=== PATIENT | female | born 1975 | race Caucasian/White ===

== ENCOUNTER 2018-04-25 15:40 | Emergency (ER) | payer BC, SELFPAY ==
[2018-04-25 15:53] VITALS: BP 126/88; PULSE 67; RESP 16; TEMP 37; O2SAT 99
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
[2018-04-25] MEDS: Sulfameth/Trimeth DS TAB 1 TAB PO ×2 (17:45→17:55)
--- NOTE | 2018-04-25 18:43 | NUR.NOTE ---
Nursing Note: a few packets of bacitracin given to pt to use.
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
== END 2018-04-25 17:53 | disposition home or self-care (01) ==
PROVIDERS: Emergency Provider Emergency Medicine
DX: S01.82XA Laceration with foreign body of other part of head, initial encounter (principal); V18.0XXA Pedal cycle driver injured in noncollision transport accident in nontraffic accident, initial encounter
CPT/HCPCS: 12011; 99284; 70486

== ENCOUNTER 2018-04-30 10:27 | Emergency (ER) | payer BC, SELFPAY ==
[2018-04-30 10:39] VITALS: BP 101/61; PULSE 62; RESP 16; TEMP 37.1; O2SAT 98
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
[2018-04-30] MEDS: Normal Saline 1,000 ML 1000 ML IV (11:00)
[2018-04-30 11:17] LABS: Abs Immature Grans 0.01 k/cumm (0.0-0.09); Absolute Basophil Count 0.06 k/cumm (0.0-0.2); Absolute Eosinophil Count 0.05 k/cumm (0.0-0.7); Absolute Lymphocyte Count 1.37 k/cumm (1.2-3.4); Absolute Monocyte Count 0.42 k/cumm (0.11-0.7); Absolute Neutrophil Count 4.27 k/cumm (1.2-6.7); Eosinophils % 0.8; HCT 36.6 % (36.0-46.0); HGB 12.7 g/dL (12.0-15.5); Immature Grans % 0.2; Lymphocytes % 22.2; Mean Corp. HGB Concentration 34.7 g/dL (32.0-36.0); Mean Corpuscular Volume 95.1 fL (80-95); Monocytes % 6.8; Platelet Count 233 x1000/uL (130-400); RBC 3.85 m/cumm (4.00-5.20); RBC Distribution Width 11.9 % (11.7-14.6); White Blood Cell Count 6.18 k/cumm (4.4-10.8)
[2018-04-30] MEDS: CLINDAMYCIN 900 MG/50 ML BAG 100 MG IVPB (11:20)
[2018-04-30 11:28] LABS: Anion Gap 5.9 mmol/L (3-11); BUN 25 mg/dL (7-18); CO2 25.1 mmol/L (21.0-32.0); CREATININE 1.06 mg/dL (0.55-1.02); Calcium 8.5 mg/dL (8.5-10.1); Chloride 102 mmol/L (98-107); Estimated GFR 57.13 (mL/min/1.73m2); Glucose 84 mg/dL (70-100); Potassium 4.2 mmol/L (3.5-5.1); Sodium 133 mmol/L (136-145)
[2018-04-30 11:40] LABS: HCG Qual (Serum) Negative
[2018-04-30] MEDS: Omnipaque 350 MG/ML 100 ML BTL IJ (11:53)
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
[2018-04-30 13:25] VITALS: TEMP 36.8
--- NOTE | 2018-05-01 11:21 | PDOC.ERCMPRO ---
Care Management Progress Note 05/01-Dr. Basurto requested assistance with a PCP (Dr. Venegas information receptionist) f/u next week for facial cellulitis. Patient travels between [place] and [place] and would like a local PCP. Referral faxed to [facility].
--- NOTE | 2018-05-01 11:23 | CMPROGNOTE_ITS ---
Care Management Progress Note 05/01-Dr. Basurto requested assistance with a PCP (Dr. Venegas manager consumer insights) f/u next week for facial cellulitis. Patient travels between [place] and [place] and would like a local PCP. Referral faxed to [facility].
== END 2018-04-30 13:26 | disposition home or self-care (01) ==
LOC: ER 05-05 09:16
PROVIDERS: Emergency Provider Physician Assistant; PCP Nurse Practitioner
DX: S01.84XA Puncture wound with foreign body of other part of head, initial encounter (principal); L02.01 Cutaneous abscess of face; L03.211 Cellulitis of face; V18.0XXA Pedal cycle driver injured in noncollision transport accident in nontraffic accident, initial encounter; Z48.02 Encounter for removal of sutures
CPT/HCPCS: 36415; 80048; 87040; 96361; 96365; 99285; 70487; 84703; 85025; J3490

== ENCOUNTER 2018-06-19 08:55 | Emergency (ER) | payer BC, SELFPAY ==
[2018-06-19 09:21] VITALS: BP 101/2; PULSE 54; RESP 18; TEMP 37.2; O2SAT 97
[2018-06-19 09:34] LABS: Bilirubin Negative (Negative); Blood Large (Negative); Clarity Sl Cloudy; Glucose Negative (Negative); Ketones Negative (Negative); Leukocyte Esterase Moderate (Negative); Nitrite Negative (Negative); Urobilinogen 0.2 EU/dL (Up TO 0.2)
[2018-06-19 09:49] LABS: Bacteria Moderate HPF (Negative); C & S Indicated? Yes; Casts Negative LPF (Negative); Crystals Negative HPF (Negative); Epithelial Cells Moderate HPF (Negative); Mucus Negative (Negative); RBC 20-50 (0-2); WBC >50 HPF (0-5)
--- NOTE | 2018-06-19 10:00 | ED.GENADUL_ITS ---
Discharge Plan Disposition Patient Disposition: HOME Condition: Stable Discharge Details Chief Complaint: Urinary Clinical Impression: UTI (urinary tract infection) Primary Care Provider: Keara Mancuso ED Provider: Ricardo Granda Home Meds and New Rx's Prescriptions: Discontinued clindamycin HCl 150 MG capsule 300 mg PO QID Qty: 10 RF: 0 Discharge Instructions Instructions: Urinary Tract Infection in Women (ED) Additional Instructions: Follow-up with your primary care provider if not improving by the end of the antibiotics. Return immediately to the emergency department if you develop high fevers, severe flank pain, nausea vomiting. Referrals: Keara Mancuso [Primary Care Provider] - (As needed for reassessment) Discharge Data Discharge Date/Time-TO BE ENTERED AT DEPARTURE: 06/19/18 10:21 Medical Decision Making Pt presenting to the ED with CC of UTI s/s that started this morning. Physical exam is unremarkable and vital signs are stable UA was performed and diagnosed with UTI. Patient placed upon Keflex and given Pyridium for control of symptoms. Patient to return for any new or significant worsening of symptoms otherwise follow with primary care if not improving by the end of antibiotics. After discussion of diagnosis and plan of care patient has no further needs, questions, or concerns and states clear understanding to return to the emergency department for any worsening symptoms. HPI General Date/Time Provider Initiated Documentation: 06/19/18 09:53 . Limitations to Documentation: no limitations . Information obtained by: patient and RN notes reviewed . History of Present Illness 42 year old F presents to the emergency department with the chief complaint of UTI, described as mild, with intensity rated at 2. Quality is described as burning, and is localized to the genitals. Patient reports no radiation. Patient started experiencing this hour(s) (3) and it has been constant. No relieving factors improve symptom(s), No exacerbating factors reported . Patient notes no other symptoms.. Patient did receive the following treatments prior to arrival, none Related Data Allergies Allergy/AdvReac Type Severity Reaction Status Date / Time No Known Allergies Allergy Unverified 04/30/18 10:38 General Stated Complaint: Urinary KURT: 4 Review of Systems Constitutional Denies body ache(s), Denies chills, Denies fever(s), Denies malaise and Denies weakness Cardiovascular Denies chest pain Respiratory Reports system reviewed and no additional complaints, except as docu Gastrointestinal Denies abdominal pain, Denies nausea and Denies vomiting Genitourinary Reports as per HPI, Denies hematuria, Reports urinary frequency, Reports dysuria , Denies urinary incontinence, Reports urinary hesitancy, Reports urinary urgency, Denies vaginal discharge and Denies vaginal pruritus Neurologic Denies confusion and Denies weakness Psychiatric Denies confusion PFSH Social History Smoking/Tobacco Use Status: Never Exam Const General: cooperative and no acute distress Orientation: alert, awake and oriented x3 Resp Effort & Inspection: normal respiratory effort and able to speak in complete sentences Auscultation: clear to auscultation bilaterally Cardio Rate: regular rate Rhythm: regular rhythm Heart Sounds: S1 normal and S2 normal GI Palpation: nontender Back/Spine/Pelvis Back: no CVA tenderness Neuro General: alert, awake and oriented x3 Extrem General: normal capillary refill Course Vital Signs Temperature 37.2 C 06/19/18 09:21 Pulse 54 L 06/19/18 09:21 Respiratory Rate 18 06/19/18 09:21 Blood Pressure 101/2 L 06/19/18 09:21 Pulse Oximetry 97 06/19/18 09:21 Temperature 37.2 C 06/19/18 09:21 Temperature Source Temporal Artery Scan 06/19/18 09:21 Pulse 54 L 06/19/18 09:21 Respiratory Rate 18 06/19/18 09:21 Respiratory Effort 06/19/18 09:23 Blood Pressure 101/2 L 06/19/18 09:21 Blood Pressure Position Sitting 06/19/18 09:21 Pulse Oximetry 97 06/19/18 09:21 Oxygen Delivery Method Room Air 06/19/18 09:21 Oxygen Flow Rate 0 06/19/18 09:21 Lab/Test Results Lab/Test Results: 06/19/18 09:30 Urine - Reflex from Ua Urine Culture - Pending Laboratory Tests Range/Units 06/19/18 09:30 Urine Color (Yellow) Yellow Urine Clarity Sl cloudy Urine pH (5-8) 6.0 Ur Specific [place] (1.005-1.025) 1.010 Urine Protein (Negative) mg/dL Negative Urine Ketones (Negative) mg/dL Negative Urine Blood (Negative) Large H Urine Nitrite (Negative) Negative Urine Bilirubin (Negative) Negative Urine Urobilinogen (Up TO 0.2) EU/dL 0.2 Ur Leukocyte Esterase (Negative) Moderate H Urine RBC (0-2) 20-50 H Urine WBC (0-5) HPF >50 Ur Epithelial Cells (Negative) HPF Moderate Urine Crystals (Negative) HPF Negative Urine Bacteria (Negative) HPF Moderate Urine Casts (Negative) LPF Negative Urine Mucus (Negative) Negative Ur Culture Indicated? Yes Urine Glucose (Negative) mg/dL Negative POC- Test(urine) Negative
== END 2018-06-19 10:21 | disposition home or self-care (01) ==
LOC: ER 10:40
PROVIDERS: Student in an Organized Health Care Education/Training Program; Emergency Provider Nurse Practitioner Family; PCP Nurse Practitioner
DX: N39.0 Urinary tract infection, site not specified (principal)
CPT/HCPCS: 81025; 99283; 81003; 81015; 87086

== ENCOUNTER 2018-10-02 12:02 | Outpatient (REF) | payer BC, SELFPAY | END 2018-10-02 12:22 | LOC: LBN 12:02 | PROVIDERS: PCP Nurse Practitioner; Visit Provider Nurse Practitioner Family | DX: R30.0 Dysuria (principal) | CPT/HCPCS: 87077; 87086; 87186 ==

== ENCOUNTER 2019-08-10 14:34 | Outpatient (REF) | payer BC, SELFPAY ==
[2019-08-11 15:07] LABS: Chlamydia Result Negative (Negative)
[2019-08-11 16:21] LABS: GC Result Negative (Negative)
== END 2019-08-10 14:54 ==
LOC: LBN 14:34
PROVIDERS: Visit Provider Advanced Practice Midwife
DX: R30.0 Dysuria (principal); N89.8 Other specified noninflammatory disorders of vagina; Z11.3 Encounter for screening for infections with a predominantly sexual mode of transmission
CPT/HCPCS: 87491; 87591; 87086; 87480; 87510; 87660

== ENCOUNTER 2019-11-21 07:58 | Emergency (ER) | payer BC, SELFPAY ==
[2019-11-21 08:08] VITALS: BP 103/46; PULSE 85; RESP 20; TEMP 37.1; O2SAT 100
--- NOTE | 2019-11-21 08:37 | DI.CT_ITS ---
EXAM: CT TEMPORAL BONE WO/W CLINICAL HISTORY: sensorineural hearing loss Left. Thin cut IAC pls TECHNIQUE: FINDINGS: CT was performed prior to and following intravenous infusion of 100 cc of Omnipaque 350. Imaging was obtained through the region of the posterior fossa and temporal bones. No bony abnormality seen inv olving the the mastoid air cells or middle or inner ear structures. No evidence of a CP angle enhanc ing lesion or mass lesion. No abnormality of visualized [id number] vasculature. No intracrani al hemorrhage. No evidence of infectious process. No bony destruction. IMPRESSION: Negative temporal bone CT without and with contrast.
--- NOTE | 2019-11-21 08:39 | W.ED.GENAD ---
Discharge Plan Disposition Patient Disposition: HOME Condition: Improving Discharge Details Chief Complaint: EarProblem Clinical Impression: Hearing loss in left ear, Tinnitus of left ear Primary Care Provider: Niurka,Local ED Provider: Adonay Chatterjee Home Meds and New Rx's Prescriptions: No Action No Known Home Meds RF: 0 Discharge Instructions Instructions: Tinnitus (ED) Additional Instructions: You underwent CT scan today to evaluate your temporal bone, auditory canal, inner ear, middle ear, facial nerve canal, mastoid air cells, as well as the jugular foramen and carotid canal. Your imaging study did not show any abnormal findings. As we discussed, we will place referrals on your behalf to audiology, otolaryngology, as well as to establish local primary care. Continue normal routine and activities. Return to the ER for any emergent concerns. Medical Decision Making 44-year-old female states she has pre-standing diminished hearing in her left ear that was worked up in the early without clear diagnosis and thought to be likely viral. She states 1 month ago she developed tinnitus in her left ear that has been constant and without modifying factors. She is an otherwise healthy and vigorously active woman with no chronic medical problems. Her vital signs are normal. Her neurologic exam is only notable for abnormal left hearing. She does not have vertiginous symptoms. Cervantes test lateralizes to the left and Rinee test is consistent with conductive hearing loss on the left. Differential diagnosis would include acoustic neuroma/Schwanoma. Screening laboratories including unremarkable CBC and CRP obtained. Imaging: Normal cerebellopontine angles bilaterally. Unremarkable ossicles, middle ear, facial nerve canals. See formal report. Today's work-up is reassuring given no evidence of soft tissue tumor. Given the new onset of left ear tinnitus and diminished hearing, I will refer her to audiology as well as otolaryngology. We will also ask care management to help her establish primary care. She understands the plan for outpatient care. Stable for discharge to home. Lab Data Lab results reviewed: Yes I reviewed the patient's lab results. Labs: Laboratory Results - last 24 hr 11/21/19 11/21/19 08:45 08:45 WBC 3.26 L RBC 4.25 Hgb 13.7 Hct 40.1 MCV 94.4 MCH 32.2 MCHC 34.2 RDW 12.4 Plt Count 234 MPV 9.9 Immature Gran % 0.0 Neutrophils % 43.0 Lymphocytes % 44.2 Monocytes % 10.1 Eosinophils % 2.1 Basophils % 0.6 Absolute Neutrophils 1.40 Absolute Lymphocytes 1.44 Absolute Monocytes 0.33 Absolute Eosinophils 0.07 Absolute Basophils 0.02 Sodium 140 Potassium 4.1 Chloride 104 Carbon Dioxide 26.5 Anion Gap 9.5 BUN 19 H Creatinine 0.96 Estimated GFR/1.73 m2 >= 60.00 Glucose 90 Calcium 9.0 C-Reactive Protein < 0.05 HPI General Mode of arrival: ambulatory. Date/Time Provider Initiated Documentation: 11/21/19 08:10. Limitations to Documentation: no limitations. Information obtained by: patient. History of Present Illness 44 year old F presents to the emergency department with the chief complaint of Left hearing loss, tinnitus, described as moderate, Quality is described as dull, and is localized to the head and left. Patient reports no radiation. Patient started experiencing this week(s) and it has been constant. No relieving factors improve symptom(s), No exacerbating factors reported . Patient notes denies fever/chills, headaches, loss of appetite and weakness. Patient did receive the following treatments prior to arrival, none Related Data Home Medications Medication Instructions Recorded Confirmed Unknown [No Known Home Meds] 08/10/19 11/21/19 Allergies Allergy/AdvReac Type Severity Reaction Status Date / Time No Known Allergies Allergy Unverified 11/21/19 08:11 General Stated Complaint: EarProblem KURT: 4 Review of Systems Narrative: 6 systems reviewed and otherwise negative [facility] Medical History Dysuria (Acute) Social History Smoking/Tobacco Use Status: Never Alcohol Intake: never Drug use: Never Substance use type: does not use Do you feel safe at home: Yes Do you feel safe in your relationship?: Yes Female Reproductive History Menstrual control method: permanent sterilization ( had vasectomy) History History 3 Para 3 Hx # Term Pregnancies 3 Multiple births Hx # Pregnancies Ectopic pregnancies AB induced Hx Number of Living Children 3 AB spontaneous 1 Exam Narrative Exam Narrative: GEN: awake, alert, oriented 3. Pleasant, well groomed, interactive. HEAD: Normocephalic, atraumatic ENT: Mucous membranes moist, oropharynx unremarkable, External ear exam unremarkable. Right tympanic membrane intact, left tympanic membrane partially occluded by cerumen. Patient has decreased hearing left ear. With Cervantes test she lateralizes to the left. Rinne test is normal on the right. Rinee test left is consistent with conductive loss. EYES: PERRL, EOMI NECK: Full ROM, no TRISH, no menigismus CHEST/RESP: Nontender, clear to auscultation bilateral, no wheeze/rhonchi/rales CARDIOVASCULAR: RRR, no murmur, rub nicol. 2+ Rad pulse bilateral ABDOMEN: Soft, nontender, no mass. +Bowel sounds EXT: Full ROM, no edema, no rash Neuro: Grossly normal neurologic exam, conversant, interactive. Psych: Speech fluent, thoughts congruent, affect normal Course Vital Signs Vital signs: Vital Signs Temperature 37.1 C 11/21/19 08:08 Pulse 85 11/21/19 08:08 Respiratory Rate 20 11/21/19 08:08 Blood Pressure 103/46 L 11/21/19 08:08 Pulse Oximetry 100 11/21/19 08:08 Temperature 37.1 C 11/21/19 08:08 Temperature Source Tympanic 11/21/19 08:08 Pulse 85 11/21/19 08:08 Respiratory Rate 20 11/21/19 08:08 Respiratory Effort Non-Labored 11/21/19 08:10 Blood Pressure 103/46 L 11/21/19 08:08 Pulse Oximetry 100 11/21/19 08:08 Oxygen Delivery Method Room Air 11/21/19 08:08 Oxygen Flow Rate 0 11/21/19 08:08 Pain Level 0 11/21/19 08:34 Comment 11/21/19 08:08
[2019-11-21 08:55] LABS: Absolute Basophil Count 0.02 k/cumm (0.0-0.2); Absolute Eosinophil Count 0.07 k/cumm (0.0-0.7); Absolute Lymphocyte Count 1.44 k/cumm (1.2-3.4); Absolute Monocyte Count 0.33 k/cumm (0.11-0.7); Basophils % 0.6; Eosinophils % 2.1; HCT 40.1 % (36.0-46.0); HGB 13.7 g/dL (12.0-15.5); Lymphocytes % 44.2; Mean Corp. HGB Concentration 34.2 g/dL (32.0-36.0); Mean Corpuscular Hemoglobin 32.2 pg (27.0-33.0); Mean Corpuscular Volume 94.4 fL (80-95); Mean Platelet Volume 9.9 fL (8.0-11.0); Monocytes % 10.1; Platelet Count 234 x1000/uL (130-400); RBC 4.25 m/cumm (4.00-5.20); RBC Distribution Width 12.4 % (11.7-14.6); White Blood Cell Count 3.26 k/cumm (4.4-10.8)
[2019-11-21 09:08] LABS: Anion Gap 9.5 mmol/L (3-11); BUN 19 mg/dL (7-18); CO2 26.5 mmol/L (21.0-32.0); CREATININE 0.96 mg/dL (0.55-1.02); Chloride 104 mmol/L (98-107); Glucose 90 mg/dL (74-106); Potassium 4.1 mmol/L (3.5-5.1); Sodium 140 mmol/L (136-145)
[2019-11-21 09:19] LABS: C-Reactive Protein < 0.05 mg/dL (0.0-0.3)
[2019-11-21] MEDS: Omnipaque 350 MG/ML 100 ML BTL IV (10:32)
--- NOTE | 2019-11-21 10:56 | DI.VRAD_ITS ---
PROCEDURE INFORMATION: Exam: CT Temporal Bones Without and With Contrast. Exam date and time: 11/21/2019 9:42 AM Age: 44 years old Clinical indication: Sensory hearing loss on the left. Buzzing in left ear. TECHNIQUE: Imaging protocol: Computed tomography images of the temporal bones without and with intravenous contrast. COMPARISON: CT Head^FACIAL BONE W (Adult) 04/30/2018 11:46 AM FINDINGS: RIGHT TEMPORAL BONE: Right inner ear: Normal. The right cerebellopontine angle is normal. Right ossicles and middle ear: Normal. The middle ear ossicles are intact. The tegmen tympani is intact. No evidence of a cholesteatoma. Right external auditory canal: Normal. Right facial nerve canal: Normal. Right jugular foramen: No jugular dehiscence. Right carotid canal: No aberrent carotid canal. Right mastoid air cells: Normal. No mastoid effusions. No abnormal enhancement post IV contrast in the right temporal bone. LEFT TEMPORAL BONE: Left inner ear: Normal. The left cerebellopontine angle is normal. Left ossicles and middle ear: Normal. The middle ear ossicles are intact. The tegmen tympani is intact. No evidence of a cholesteatoma. Left external auditory canal: Normal. Left facial nerve canal: Normal. Left jugular foramen: No jugular dehiscence. Left carotid canal: No aberrent carotid canal. Left mastoid air cells: Normal. No mastoid effusions. No abnormal enhancement post IV contrast in the left temporal bone. IMPRESSION: No acute findings. No obvious cause for the patient's left ear symptomatology. Dictated and Authenticated by: Tristian Haney MD. Ordering:DIEGO Urias MD
[2019-11-21 11:11] VITALS: BP 97/60; PULSE 52; RESP 20; TEMP 36.7; O2SAT 100
[2019-11-21 11:19] VITALS: BP 97/60; PULSE 52; RESP 20; TEMP 36.7; O2SAT 100
--- NOTE | 2019-11-22 11:39 | CMPROGNOTE_ITS ---
- If Service Date Differs Date of service: 11/22/19 Time of Service: 11:39 Care Management Progress Note At the request of ED provider, CM faxed a referral to [facility] Audiology (fax # [phone]) and to [facility] Otolaryngology (fax # [phone]) including demographics, insurance, MD note, and diagnostic imaging reports on 11/22/2019 at 11:40 am. Referral also faxed to [facility] to establish care with PCP.
--- NOTE | 2019-11-22 11:39 | PDOC.ERCMPRO ---
- If Service Date Differs Date of service: 11/22/19 Time of Service: 11:39 Care Management Progress Note At the request of ED provider, CM faxed a referral to [facility] Audiology (fax # [phone]) and to [facility] Otolaryngology (fax # [phone]) including demographics, insurance, MD note, and diagnostic imaging reports on 11/22/2019 at 11:40 am. Referral also faxed to [facility] to establish care with PCP.
== END 2019-11-21 11:15 | disposition home or self-care (01) ==
PROVIDERS: Emergency Provider Emergency Medicine; PCP Physician Assistant
DX: H90.5 Unspecified sensorineural hearing loss (principal); H93.12 Tinnitus, left ear
CPT/HCPCS: 36415; 80048; 99285; 70482; 85025; 86140; 99284; J3490

== ENCOUNTER 2020-01-18 01:36 | Outpatient (CLI) | payer BC, SELFPAY ==
--- NOTE | 2020-01-18 | DI.MRI_ITS ---
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 TECHNIQUE: Multiplanar multisequence MRI of the brain and internal auditory canals was performed. CONTRAST MATERIAL: IV Contrast: 10 mL of Magnevist contrast administered. COMPARISON: CT CT TEMPORAL BONE WO/W from 11/21/2019 FINDINGS: VENTRICLES AND EXTRA AXIAL SPACES: Normal in size and morphology for the patient's age. HEMORRHAGE: None. CEREBRAL PARENCHYMA: No focus of restricted diffusion to suggest acute infarct. No space-occupying le ya identified. MIDLINE SHIFT: None. BRAINSTEM/CEREBELLUM: Normal. CALVARIUM: Normal. ENHANCEMENT: No suspicious enhancement identified. VISUALIZED PARANASAL SINUSES/MASTOIDS: Clear. IAC/CP ANGLE: The internal auditory canals are within normal limits. The cerebellar pontine angles ar e unremarkable. No enhancing lesions are seen. Visualized portion of the facial nerves appear within normal limits. OTHER FINDINGS: None. IMPRESSION: Unremarkable MRI of the brain and internal auditory canals. DATA REPOSITORY:
[2020-01-18] MEDS: Normal Saline Flush 10 ML SYR IVP (14:33)
[2020-01-18] MEDS: Gadoterate meglumine 20 ML VIAL 10 ML IVP (14:34)
== END 2020-01-18 01:56 ==
PROVIDERS: PCP Physician Assistant; Visit Provider Otolaryngology Otolaryngology/Facial Plastic Surgery
DX: H93.19 Tinnitus, unspecified ear (principal); H90.8 Mixed conductive and sensorineural hearing loss, unspecified
CPT/HCPCS: 70553

== ENCOUNTER 2023-02-27 16:24 | Outpatient (REF) | payer BC, SELFPAY ==
--- NOTE | 2023-02-27 16:00 | PAPFT_PTH ---
PATIENT: Carla Murguia LOC: [facility] U#:[id number] AGE/SX: 47/F ROOM: RE02/27/[address]: Linda Gomez : 1975 BED: DIS: 02/27/2023 SPEC #: [id number] RECD: 02/27/23 18:28 STATUS: JUAN MIGUEL REQ #: [id number] DESHAUN: 02/27/23 16:[address]: Linda Gomez DEPT: [facility] Cytology RECD BY: Soumya Wilde ENTERED: 02/27/23 18:28 SP TYPE: PAPFT OTHR DR: Kitty Sanchez Tissues: 1 - CX/ENDOCX FOR PAP SMEARS Procedures: PAP THIN PREP/UVM Screening HPV DNA PROBE Comments: [id number] (CHLAMYDIA/GC)
[2023-02-28 13:33] LABS: Chlamydia Result Negative (Negative); GC Result Negative (Negative)
== END 2023-02-27 16:25 | disposition home or self-care (01) ==
LOC: LBN 16:24
PROVIDERS: PCP Physician Assistant; Visit Provider Advanced Practice Midwife
DX: R87.612 Low grade squamous intraepithelial lesion on cytologic smear of cervix (LGSIL) (principal); B37.31 Acute candidiasis of vulva and vagina
CPT/HCPCS: 87491; 87591; 88142; 87480; 87510; 87624; 87660

== ENCOUNTER 2024-03-01 15:30 | Outpatient (CLI) | payer SELFPAY ==
[2024-03-01 16:05] LABS: HCT 39.2 % (36.0-46.0); HGB 13.4 g/dL (11.2-15.7); MCHC 34.2 % (32.0-36.0); MCV 97 fL (80-95); MPV 9.9 fL (8.0-11.0); Platelet Count 224 10^3/uL (130-400); RBC 4.06 10^6/uL (3.93-5.22); RDW 11.9 % (11.7-14.6); RDW-SD 42.3 fL; WBC 7.24 10^3/uL (4.4-10.8)
[2024-03-01 17:17] LABS: ALT 42 U/L (14-59); AST 25 U/L (15-37); Alkaline Phosphatase 63 U/L (46-116); Anion Gap 8.9 mmol/L (3-11); BUN 21 mg/dL (7-18); Bilirubin, Total 0.59 mg/dL (0.2-1.0); CO2 27.1 mmol/L (21.0-32.0); CREATININE 0.9 mg/dL (0.55-1.02); Calcium 9.3 mg/dL (8.5-10.1); Chloride 105 mmol/L (98-107); Estimated GFR 79.35 (mL/min/1.73m2); Glucose 97 mg/dL (74-106); Potassium 3.8 mmol/L (3.5-5.1); Sodium 141 mmol/L (136-145); TSH (W/Ref FT4) 3.02 uIU/mL (0.36-3.74); Total Protein 7.1 g/dL (6.4-8.2)
[2024-03-03 11:18] LABS: Antimullerian Hormone 0.11 ng/mL (<2.6)
== END 2024-03-01 15:31 | disposition home or self-care (01) ==
LOC: LBO 15:32
PROVIDERS: PCP Physician Assistant; Visit Provider Advanced Practice Midwife
DX: Z34.90 Encounter for supervision of normal pregnancy, unspecified, unspecified trimester (principal); Z31.69 Encounter for other general counseling and advice on procreation
CPT/HCPCS: 36415; 80053; 85027; 83520; 84443

== ENCOUNTER 2024-03-01 15:31 | Outpatient (REF) | payer SELFPAY ==
--- NOTE | 2024-03-01 14:30 | PAPFT_PTH ---
PATIENT: Carla Murguia LOC: [facility] U#:[id number] AGE/SX: 48/F ROOM: RE03/01/[address]: Linda Gomez : 1975 BED: DIS: 03/01/2024 SPEC #: [id number] RECD: 03/01/24 18:28 STATUS: JUAN MIGUEL REQ #: [id number] DESHAUN: 03/01/24 14:[address]: Linda Gomez DEPT: [facility] Cytology RECD BY: Soumya Wilde ENTERED: 03/01/24 18:29 SP TYPE: PAPFT OTHR DR: Kitty Sanchez Tissues: 1 - CX/ENDOCX FOR PAP SMEARS Procedures: PAP THIN PREP/UVM Screening HPV DNA PROBE Comments: [id number] (HPV 16 & 18/45)
== END 2024-03-01 15:32 | disposition home or self-care (01) ==
LOC: LBN 15:31
PROVIDERS: PCP Physician Assistant; Visit Provider Advanced Practice Midwife
DX: Z12.4 Encounter for screening for malignant neoplasm of cervix (principal); R87.612 Low grade squamous intraepithelial lesion on cytologic smear of cervix (LGSIL); Z11.51 Encounter for screening for human papillomavirus (HPV)
CPT/HCPCS: 88142; 87624

== ENCOUNTER 2024-03-15 15:45 | Outpatient (REF) | payer SELFPAY ==
--- NOTE | 2024-03-15 13:45 | ENDO_PTH ---
PATIENT: Carla Murguia LOC: [facility] U#:[id number] AGE/SX: 48/F ROOM: RE03/15/[address]: Geneva Domingo : 1975 BED: DIS: 03/15/2024 SPEC #: [id number] RECD: 03/15/24 17:18 STATUS: JUAN MIGUEL REQ #: [id number] DESHAUN: 03/15/24 13:[address]: Geneva Domingo DEPT: Surgical Specimen RECD BY: Soumya Wilde ENTERED: 03/15/24 17:19 SP TYPE: Endo OTHR DR: Kitty Sanchez Tissues: 1 - ENDOCERVICAL BX/CURRETTE Procedures: GROSS AND MICRO LEVEL 4 Comments: [id number]
== END 2024-03-15 15:46 | disposition home or self-care (01) ==
LOC: LBN 15:45
PROVIDERS: PCP Physician Assistant; Visit Provider Obstetrics & Gynecology Gynecology
DX: R87.612 Low grade squamous intraepithelial lesion on cytologic smear of cervix (LGSIL) (principal); Z31.69 Encounter for other general counseling and advice on procreation; Z98.890 Other specified postprocedural states
CPT/HCPCS: 88305

== ENCOUNTER 2024-10-22 21:33 | Outpatient (REF) | payer SELFPAY | END 2024-10-22 21:34 | disposition home or self-care (01) | LOC: LBN 21:33 | PROVIDERS: PCP Physician Assistant; Visit Provider Physician Assistant Medical | DX: B34.9 Viral infection, unspecified (principal) | CPT/HCPCS: 87070 ==

== ENCOUNTER 2025-03-02 20:29 | Outpatient (REF) | payer SELFPAY | END 2025-03-02 20:30 | disposition home or self-care (01) | LOC: LBN 20:29 | PROVIDERS: PCP Physician Assistant; Visit Provider Obstetrics & Gynecology | DX: Z12.4 Encounter for screening for malignant neoplasm of cervix (principal) | CPT/HCPCS: 88142; 87624 ==

== ENCOUNTER 2025-03-22 13:23 | Outpatient (REF) | payer SELFPAY ==
[2025-03-22 15:09] LABS: HCT 38.4 % (36.0-46.0); HGB 12.6 g/dL (11.2-15.7); MCH 31.1 pg (27.0-33.0); MCHC 32.8 % (32.0-36.0); MCV 95 fL (80-95); MPV 10.5 fL (8.0-11.0); Platelet Count 244 10^3/uL (130-400); RBC 4.05 10^6/uL (3.93-5.22); RDW 12.0 % (11.7-14.6); RDW-SD 42.1 fL; WBC 4.74 10^3/uL (4.4-10.8)
[2025-03-22 15:24] LABS: ALT 23 U/L (14-59); AST 20 U/L (15-37); Albumin 3.9 g/dL (3.4-5.0); Alkaline Phosphatase 82 U/L (46-116); Anion Gap 8.8 mmol/L (3-11); BUN 24 mg/dL (7-18); Bilirubin, Total 0.6 mg/dL (0.2-1.0); CO2 26.2 mmol/L (21.0-32.0); Calcium 9.2 mg/dL (8.5-10.1); Chloride 104 mmol/L (98-107); Estimated GFR 106.62 (mL/min/1.73m2); Glucose 70 mg/dL (74-106); Potassium 4.3 mmol/L (3.5-5.1); Sodium 139 mmol/L (136-145); Total Protein 6.6 g/dL (6.4-8.2)
[2025-03-22 15:31] LABS: Hemoglobin A1C 5.0 % (<5.7)
== END 2025-03-22 13:24 | disposition home or self-care (01) ==
LOC: NCHCN 13:23
PROVIDERS: PCP Physician Assistant; Visit Provider Physician Assistant
DX: Z13.1 Encounter for screening for diabetes mellitus (principal); Z00.00 Encounter for general adult medical examination without abnormal findings
CPT/HCPCS: 80053; 85027; 83036

== ENCOUNTER 2025-04-22 09:50 | Outpatient (REF) | payer SELFPAY | END 2025-04-22 09:51 | disposition home or self-care (01) | LOC: LBN 09:50 | PROVIDERS: PCP Physician Assistant; Visit Provider Obstetrics & Gynecology | DX: N85.8 Other specified noninflammatory disorders of uterus (principal) | CPT/HCPCS: 88305; 88361 ==

== ENCOUNTER 2025-06-29 11:32 | Day surgery (SDC) | payer SELFPAY ==
[2025-06-29 11:55] VITALS: BP 119/90; PULSE 52; RESP 14; TEMP 36.5; O2SAT 100
--- NOTE | 2025-06-29 12:00 | W.ANESPRE ---
General Info Date of Service Date Performed: 06/29/25 Height: 5 ft 3 in Weight: 56.4 kg Body Mass Index (BMI): 22.0 Surgical Procedure: Operation Date: 06/29/25 14:20 Proposed Procedure Side Surgeon luba Torres MD Meds Allergies and Home Medications Allergies Allergy/AdvReac Type Severity Reaction Status Date / Time No Known Allergies Allergy Verified 06/29/25 11:51 Home Medication Medication Instructions Recorded human papillomav vac,9-thi(PF) 0.5 0.5 ml IM .COMPLEX 6 months #5 mL 04/22/25 mL IM suspension (Gardasil 9 (PF)) bisacodyl 5 mg tablet,delayed 5 mg PO ONCE #4 tabs 06/16/25 release (Dulcolax (bisacodyl)) polyethylene glycol 3350 17 17 g PO ONCE #238 grams 06/16/25 gram/dose oral powder Current Visit Medications: Current Medications Generic Name Dose Route Start Last Admin Trade Name Freq PRN Reason Stop Dose Admin Ringer's Solution 1,000 mls @ 80 mls/hr 06/29/25 06:00 IV 06/29/25 23:59 INFUSION ANT IV Miscellaneous Supplies 1 each 06/29/25 06:00 Iv Access IV 06/29/25 23:59 DIRECTED ANT Sodium Chloride 0 ml 06/29/25 06:00 Normal Saline Flush 10 Ml Syr IV 06/29/25 23:59 PRN PRN Sodium Chloride 0 ml 06/29/25 06:00 Normal Saline 10 Ml Vial IJ 06/29/25 23:59 DIRECTED PRN Sterile Water 0 ml 06/29/25 06:00 Water,Injection,Sterile 10 Ml Vial IJ 06/29/25 23:59 DIRECTED PRN PFSH Active Problems Active Problems: Problem Status Onset Code Sensorineural hearing loss of both ears Acute H90.3 Mixed conductive and sensorineural hearing loss, unilateral, left ear with restricted hearing on the contralateral side Acute H90.A32 Asymmetrical hearing loss of left ear Acute H91.8X2 Sensorineural hearing loss (SNHL) of right ear with restricted hearing of left ear Acute H90.A21 Jaw clicking Acute R29.898 Dysfunction of both eustachian tubes Acute H69.83 Tinnitus Acute H93.19 Cerumen impaction Acute H61.20 Abnormal auditory perception Acute H93.299 Dysuria Acute R30.0 Medical History Medical History Family history of ulcerative colitis Mother Family history of colon cancer Sister. LGSIL of cervix of undetermined significance Contraception Urinary incontinence Surgical History Surgical History Hx of knee surgery History of colonoscopy History of colposcopy 03/15/24. Eval of LGSIL with + HPV. Tobacco Smoking/Tobacco Use Status: Never Passive smoking exposure: No Second hand exposure: No Alcohol Alcohol Intake: never Substance Use Substance use: Never Substance use type: does not use Prental History History 3 Para 3 Hx # Term Pregnancies 3 Multiple births Hx # Pregnancies Ectopic pregnancies AB induced Hx Number of Living Children 3 AB spontaneous 1 Past Pregnancies Del. Date GA/Weeks # Preg Succ Route Wgt Sex Labor Lgth Anesthesia Location Prov Complic 12/09/01 vaginal 02/26/04 vaginal 02/13/06 vaginal Vital Signs and Lab Results Vital Signs Most Recent Vital Signs in EMR: Most Recent Vital Signs Temp Pulse Resp BP Pulse Ox 36.5 C 52 L 14 119/90 100 06/29/25 11:55 06/29/25 11:55 06/29/25 11:55 06/29/25 11:55 06/29/25 11:55 Point of Care Results Point of Care Results: POC- Test(urine) Negative 06/29/25 11:58 Anesthesia Assessment and Plan Anesthesia History Personal History: No History of Anesthesia Complications Family History: No Family History of Anesthesia Complications Exercise Tolerance Exercise Tolerance: Metabolic Equivalents>4 Pertinent Negatives Pertinent Negatives: No Symptoms of GERD Cardiac & Pulmonary Exam Cardiac Exam: Normal S1/S2 Heart Sounds Pulmonary Exam: Clear Bilateral Breath Sounds Implantable Cardiac Device Does patient have a Pacemaker or an ICD?: No Airway Exam Known Difficult Airway: No Mallampati Class: 1 Mouth Opening: Normal (> 3cm) Thyromental Distance: Greater than 3 cm Neck Range of Motion: Full ROM Neck Circumference: Normal Teeth Condition: Normal Dentition ASA Classification ASA Score: ASA 2 Emergency Case?: No NPO Status NPO Status: NPO Clears >2 hours, Solids >8 hours Status Status: Negative HCG Anesthesia Plan Resuscitation Status: Full Code Anesthesia Technique: MAC Anesthesia Airway Planned: Natural Airway Monitors Used: Standard Monitors
[2025-06-29 12:03] VITALS: BMI 22.0
[2025-06-29] MEDS: Lactated Ringers 1,000 ML 80 ML IV (12:10)
--- NOTE | 2025-06-29 13:28 | BOWEL_PTH ---
PATIENT: Carla Murguia LOC: [facility] U#:[id number] AGE/SX: 49/F ROOM: RE06/29/[address]: Sanjana Torres : 1975 BED: DIS: 06/29/2025 SPEC #: [id number] RECD: 06/29/25 17:47 STATUS: JUAN MIGUEL REQ #: [id number] DESHAUN: 06/29/25 13:[address]: Sanjana Torres DEPT: Surgical Specimen RECD BY: Soumya Wilde ENTERED: 06/29/25 17:48 SP TYPE: Bowel OTHR DR: Barry Good Tissues: 1 - BIOPSY BOWEL Procedures: GROSS AND MICRO LEVEL 4 Comments: [id number]
--- NOTE | 2025-06-29 13:34 | W.PM.DSUDISC ---
Date of service: 06/29/25 Discharge Plan Disposition Patient Disposition: Home Condition: Good Discharge Details Reason For Visit: Screening colonoscopy Attending Provider: Sanjana Torres Primary Care Provider: Barry Good Recommendations for Follow Up Recommended tests to be ordered by follow up provider: Follow up pathology Home Meds and New Rx's Prescriptions: Continued Gardasil 9 (PF) 0.5 mL suspension 0.5 ml IM .COMPLEX 180 Days Qty: 5 2RF Rx Instructions: 0.5 mL intramuscularly; administer second injection at 1-2 months after first, and third dose at 6 months after second dose Discontinued bisacodyl [Dulcolax (bisacodyl)] 5 mg tablet,delayed release (DR/EC) 5 mg PO ONCE Qty: 4 0RF Rx Instructions: Take per colonoscopy instructions provided by ordering providers office polyethylene glycol 3350 17 gram/dose powder 17 g PO ONCE Qty: 238 0RF Rx Instructions: Take per colonoscopy instructions provided by ordering providers office Discharge Instructions Additional Instructions: Your colonoscopy went well today. You did have one polyp which was removed and will be sent to pathology. We will contact you when the results are available and recommendations on when to return for a repeat colonoscopy. If you have any questions or concerns please contact the general surgery office. 1. If tolerated, consume a soft, low fiber diet for 1-2 days. 2[address] Do not drive, drink alcohol, operate machinery, make critical decisions, or do activities that require coordination or balance for 24 hours. 3. Because air was put into your colon during the procedure, expelling air from your rectum (passing gas or farting) is normal. 4. You may not have a bowel movement for 1-3 days because of the colonoscopy prep. This is normal. 5. Go directly to the emergency room if you notice any of the following: Develop chills (warm to touch), or if you have a thermometer and your temperature is above 101 Difficulty breathing or difficultly swallowing Persistent vomiting Severe abdominal pain, other than gas cramps Severe chest pain Black, tarry stools Any bleeding – exceeding one tablespoon 6. Call your physician if the site where your intravenous was started becomes red, swollen, painful, and warm to touch. 7. Your physician has reviewed your pre-procedure medications. Please continue to take those medications as previously ordered. You will be given specific information/education regarding any changes to your medications before leaving. Stand Alone Forms: Anesthesia Discharge Inst., Skip Hester (DSU) Activity:: Activity as Tolerated Diet:: As Tolerated Discharge Orders Discharge Orders: Discharge Order (Routine); Ordered 06/29/25 Ordered By: Sanjana Torres
[2025-06-29 13:36] VITALS: BP 94/63; PULSE 46; RESP 12; TEMP 36.4; O2SAT 98
--- NOTE | 2025-06-29 13:36 | W.COLOREPORT ---
Date of service: 06/29/25 Time of Service: 13:36 Colonoscopy Report Date of procedure: 06/29/25 Pre-op diagnosis general: Surveillance colonoscopy given personal history of polyps Post-op diagnosis procedure note: same Procedure: Colonoscopy with polypectomy Surgeon: Sanjana Torres Anesthesia Type: General:No Airway Estimated blood loss (mL): 1 Pathology: other (Rectal polyp ) Complications: None Disposition: PACU Indications: Patient is a 49 yo female who presents for a colonoscopy given a personal history of polyps and family history of colon cancer in her sister. She denies any changes in bowel habits. Prep: Miralax/Dulcolax Procedure Start Time: 13:07 Procedure End Time: 13:31 Retraction Time: 17 Findings: Rectal polyp removed with hot snare. Procedure Description: The patient was brought to the endoscopy suite and placed in the left lateral decubitus position. After induction of IV sedation, a digital rectal exam was performed.. Digital exam was normal. The colonoscope was then passed to the cecum without difficulty. Cecal intubation was confirmed by the identification of the appendiceal orifice and the ileocecal valve. Upon withdrawing the colonoscope, all mucosal surfaces were inspected. The prep was noted to be adequate. There was a <1cm rectal polyp, which was removed using a hot snare in its entirety. Specimen was retrieved for pathological analysis. There was no other evidence of mucosal abnormality, polyp or cancer. Retroflexion in the rectum was unremarkable. The patient tolerated the procedure well with no complications. Postoperatively, the patient was transferred to the recovery room in stable condition. [place] Bowel Prep [place] Bowel Prep Right Colon: 3 Left Colon: 3 Transverse Colon: 3 Total Score: 9
[2025-06-29 14:06] VITALS: BP 101/77; PULSE 48; RESP 16; TEMP 36.3; O2SAT 100
--- NOTE | 2025-06-29 14:24 | W.ANESPOSTOP ---
Postoperative Evaluation Date, Time and Location Date Performed: 06/29/25 Time Performed: 14:05 Patient Location: Day Surgery Unit Vital Signs Most Recent Imported Vital Signs: Most Recent Vital Signs Temp Pulse Resp BP Pulse Ox 36.3 C L 48 L 16 101/77 100 06/29/25 14:06 06/29/25 14:06 06/29/25 14:06 06/29/25 14:06 06/29/25 14:06 Pain Score Most Recent Pain Score: Most Recent Pain Score Pain Level 0 06/29/25 14:06 Assessment Mental Status: Awake (Alert & Oriented to Patient Baseline) Airway and Respiratory Function: Patent airway with normal (patient baseline) respiratory exam Cardiovascular Function: Hemodynamically Stable Hydration Status: Adequately Hydrated Nausea & Vomiting: No Nausea or Vomiting Pain: Pt. Denies Any Pain Peripheral Nerve Block: Patient did not receive a nerve block
== END 2025-06-29 14:35 | disposition home or self-care (01) ==
PROVIDERS: PCP Physician Assistant; Visit Provider Student in an Organized Health Care Education/Training Program
PROC: 0DJD8ZZ Inspection of Lower Intestinal Tract, Via Natural or Artificial Opening Endoscopic (ICD-10-PCS; CPT 45378; principal; 2025-06-29 14:15)
DX: Z12.11 Encounter for screening for malignant neoplasm of colon (principal); D12.8 Benign neoplasm of rectum; Z80.0 Family history of malignant neoplasm of digestive organs
CPT/HCPCS: 45385; 81025; 88305; J2704